=== PATIENT | female | born 1950 | race Hispanic/Latino ===

== ENCOUNTER 2022-10-20 08:50 | Day surgery (SDC) | payer OTHER ==
[2022-10-15 13:07] LABS: BASOPHILS % (AUTO) 0.3 % (0.0-5.0); EOSINOPHILS % (AUTO) 2.1 % (0.0-8.0); HEMATOCRIT 29.9 % (36-48); LYMPHOCYTES % (AUTO) 39.3 % (21.0-51.0); MEAN CORPUSCULAR HEMOGLOBIN 31.5 pg (27.0-33.0); MEAN CORPUSCULAR HGB CONC 33.4 g/dL (32.0-36.0); MEAN CORPUSCULAR VOLUME 94.3 fL (79-99); MONOCYTES % (AUTO) 9.8 % (3.0-13.0); NEUTROPHILS % (AUTO) 48.2 % (40.0-77.0); PLATELET COUNT (AUTO) 132 K/uL (130-400); RED BLOOD CELL COUNT(AUTO) 3.17 MIL/uL (4.00-5.50); WHITE BLOOD COUNT (AUTO) 6.7 K/uL (4.8-10.8)
[2022-10-15 13:12] VITALS: BP 114/55
[2022-10-15 13:24] LABS: CREATININE 1.3 mg/dL (0.5-1.5); POTASSIUM 3.9 mmol/L (3.5-5.1)
[2022-10-15 13:28] LABS: INR 1.12 (0.85-1.15); PROTHROMBIN TIME 12.1 SEC (9.6-11.6)
[2022-10-15 13:30] LABS: PARTIAL THROMBOPLASTIN TIME 30.3 SEC (26.3-35.5)
[2022-10-20] VITALS (11 sets, daily range): BP systolic 103–145; BP diastolic 42–78
[~2022-10-20] VITALS: Ht 160 cm; Wt 80.6 kg
[~2022-10-20 08:50] MED LIST: 0.9%NACL 1000ML 1,000 ML IV SCH; ATOR40TA69 PO; CALC-1125 PO; CHOL200013 PO; LISI10TA24 PO; METO25TA6 PO; OMEP20TA20 PO; PROP150T28 PO; RIVA15TA PO; TRAM50TA4 PO
[2022-10-20] MEDS ORDERED: LIDOCAINE HCL 1% MDV 50ML VIAL ONE (10:49)
[2022-10-20] MEDS ORDERED: MIDAZOLAM HCL 1 MG/ML 2ML VIAL ONE ×2 (10:49→11:35)
[2022-10-20] MEDS ORDERED: BUPIVACAINE/PF 0.25% 10ML VIAL IJ ONE (10:49)
[2022-10-20] MEDS ORDERED: MEPERIDINE-PF 25 MG/ML SYG ONE ×2 (10:49→11:35)
[2022-10-20] MEDS ORDERED: CEFAZOLIN SODIUM 1 GM VIAL ONE (10:50)
[2022-10-20] MEDS ORDERED: ACETAMINOPHEN WITH CODEINE 1 TAB TAB PO PRN (13:00)
[2022-10-20] MEDS ORDERED: ACETAMINOPHEN 500 MG TABLET PO PRN (13:00)
== END 2022-10-20 15:40 | disposition home or self-care (01) ==
LOC: DAH 08:50
PROVIDERS: ATTEND Internal Medicine Cardiovascular Disease
DX: I44.39 Other atrioventricular block (principal); I48.4 Atypical atrial flutter; I49.5 Sick sinus syndrome; I47.1 Supraventricular tachycardia; I10 Essential (primary) hypertension; I48.0 Paroxysmal atrial fibrillation; Z90.710 Acquired absence of both cervix and uterus; Z98.890 Other specified postprocedural states; Z82.49 Family history of ischemic heart disease and other diseases of the circulatory system; Z79.01 Long term (current) use of anticoagulants; Z79.899 Other long term (current) drug therapy
CPT/HCPCS: 80048; 85025; 85610; 85730; 36415; 93005; 33208; 71045; C1785; C1898 ×2; J0690; J7030; J2250 ×2; J3490 ×2; J2175 ×2; A4215; A4222; A4221; A4663; A4216; A4606; A4223 ×3; 99156; 99157